=== PATIENT | female | born 1950 | race Caucasian/White ===

== ENCOUNTER 2016-11-03 02:47 | Emergency (ER) | payer MEDICARE, MEDICAID ==
[2016-11-03 03:43] LABS: ALBUMIN 3.6 g/dL (3.4-5.0); ALKALINE PHOSPHATASE 128 U/L (46-116); ALT/SGPT 27 U/L (14-59); AMYLASE 69 U/L (25-115); AST/SGOT 23 U/L (15-37); BILIRUBIN TOTAL 0.3 mg/dL (0.20-1.00); CARBON DIOXIDE 27.7 mmol/L (21-32); CHLORIDE SERUM 106 mmol/L (98-107); CREATININE SERUM 0.8 mg/dL (0.6-1.0); GFR1 > 60 mL/min; GLUCOSE SERUM 109 mg/dL (74-106); LIPASE 214 IU/L (73-393); POTASSIUM SERUM 3.8 mmol/L (3.5-5.1); SODIUM SERUM 142 mmol/L (136-145); TOTAL PROTEIN, SERUM 7.1 g/dL (6.4-8.2)
[2016-11-03 04:08] LABS: PLATELET COUNT 206 x10^3mcL (130-400); RED CELL DISTRIBUTION WIDTH 12.3 % (11.5-14.5)
[2016-11-03 04:14] LABS: BASOPHIL % 2.5 % (0-2)
[2016-11-03 05:55] VITALS: BP 105/65
== END 2016-11-03 05:55 | disposition home or self-care (01) ==
LOC: ED 02:47
PROVIDERS: Emergency Medicine
DX: R11.10 Vomiting, unspecified (principal)
CPT/HCPCS: 36415; Q0162

== ENCOUNTER 2017-09-20 18:20 | Emergency (ER) | payer MEDICARE, MEDICAID ==
[~2017-09-20] VITALS: Ht 154.9 cm; Wt 56.7 kg
[2017-09-20 21:47] VITALS: BP 133/82
== END 2017-09-20 21:47 | disposition home or self-care (01) ==
LOC: ED 18:20
DX: J40 Bronchitis, not specified as acute or chronic (principal)
CPT/HCPCS: Q0092

== ENCOUNTER 2018-07-11 14:08 | Emergency (ER) | payer BC ==
[~2018-07-11] VITALS: Ht 154.9 cm; Wt 56.7 kg
[2018-07-11 14:22] VITALS: Ht 154.9 cm; Wt 56.7 kg
[2018-07-11 16:12] VITALS: BP 113/78
== END 2018-07-11 16:12 | disposition home or self-care (01) ==
LOC: ED 14:08
DX: S09.8XXA Other specified injuries of head, initial encounter (principal); S63.502A Unspecified sprain of left wrist, initial encounter; S80.01XA Contusion of right knee, initial encounter; W10.8XXA Fall (on) (from) other stairs and steps, initial encounter; Y93.01 Activity, walking, marching and hiking; Y92.89 Other specified places as the place of occurrence of the external cause; Y99.8 Other external cause status
CPT/HCPCS: 90715; Q0092

== ENCOUNTER 2018-12-29 16:30 | Emergency (ER) | payer BC ==
[~2018-12-29] VITALS: Ht 154.9 cm; Wt 57.2 kg
[2018-12-29 16:33] VITALS: BP 114/70; Ht 154.9 cm; Wt 57.2 kg
== END 2018-12-29 18:47 | disposition home or self-care (01) ==
LOC: ED 16:30
DX: L03.116 Cellulitis of left lower limb (principal); L03.115 Cellulitis of right lower limb; Z98.890 Other specified postprocedural states; W57.XXXA Bitten or stung by nonvenomous insect and other nonvenomous arthropods, initial encounter; Y93.89 Activity, other specified; Y92.89 Other specified places as the place of occurrence of the external cause; Y99.8 Other external cause status

== ENCOUNTER 2019-06-06 23:01 | Emergency (ER) | payer BC ==
[~2019-06-06] VITALS: Ht 149.9 cm; Wt 56.0 kg
[2019-06-06 23:17] VITALS: Ht 149.9 cm; Wt 56.0 kg
[2019-06-07 01:52] VITALS: BP 117/64
== END 2019-06-07 01:52 | disposition home or self-care (01) ==
LOC: ED 23:01
DX: K52.9 Noninfective gastroenteritis and colitis, unspecified (principal); Z98.890 Other specified postprocedural states

== ENCOUNTER 2019-10-27 17:03 | Emergency (ER) | payer BC ==
[~2019-10-27] VITALS: Ht 154.9 cm; Wt 54.9 kg
[2019-10-27 17:16] VITALS: Ht 154.9 cm; Wt 54.9 kg
[2019-10-27 18:40] VITALS: BP 127/71
== END 2019-10-27 18:40 | disposition home or self-care (01) ==
LOC: ED 17:03
DX: M79.605 Pain in left leg (principal); Z98.890 Other specified postprocedural states
CPT/HCPCS: J1885; Q0162

== ENCOUNTER 2019-12-12 21:07 | Emergency (ER) | payer BC, SELFPAY ==
[~2019-12-12] VITALS: Ht 154.9 cm; Wt 59.0 kg
[2019-12-12 21:09] VITALS: BP 125/75; Ht 154.9 cm; Wt 59.0 kg
== END 2019-12-12 21:44 | disposition home or self-care (01) ==
LOC: ED 21:07
DX: B34.9 Viral infection, unspecified (principal); Z20.828 Contact with and (suspected) exposure to other viral communicable diseases; Z98.890 Other specified postprocedural states
CPT/HCPCS: U0003-CS

== ENCOUNTER 2020-04-16 13:30 | Emergency (ER) | payer BC, SELFPAY ==
[~2020-04-16] VITALS: Ht 152.4 cm; Wt 58.1 kg
[2020-04-16 14:03] VITALS: Ht 152.4 cm; Wt 58.1 kg
[2020-04-16 15:10] VITALS: BP 128/78
== END 2020-04-16 15:10 | disposition home or self-care (01) ==
LOC: ED 13:30
DX: B34.9 Viral infection, unspecified (principal); Z20.828 Contact with and (suspected) exposure to other viral communicable diseases; Z98.890 Other specified postprocedural states
CPT/HCPCS: U0003